=== PATIENT | female | born 1980 | race Caucasian/White ===

== ENCOUNTER 2018-08-04 21:19 | Emergency (ER) | payer MEDICAID ==
[~2018-08-04] VITALS: Ht 165.1 cm; Wt 64.0 kg
[2018-08-04 21:32] VITALS: BP 122/80
== END 2018-08-04 23:30 | disposition left against medical advice (07) ==
LOC: ER 21:19
DX: Z53.21 Procedure and treatment not carried out due to patient leaving prior to being seen by health care provider (principal)